=== PATIENT | male | born 1945 | race Asian ===

== ENCOUNTER 2017-10-29 09:51 | Inpatient (IN) | payer BC ==
[2017-10-29 11:30] LABS: BASO % 0.4 % (0-2.0); EOS % 2.7 % (0-4.5); HEMATOCRIT 38.4 % (35.4-49); HEMOGLOBIN 13.1 GM/dL (11.7-16.9); LYMPH % 17.9 % (8-40); MCH 30.7 pg (25.7-33.7); MCHC 34.1 g/dl (32.0-35.9); MEAN PLT VOLUME 8.4 fl (7.5-11.1); PLATELET COUNT 180 K/MM3 (134-434); RBC 4.26 M/mm3 (4.00-5.60); RDW 12.4 % (11.9-15.9); WHITE BLOOD COUNT 6.3 K/mm3 (4.0-10.0)
--- NOTE | 2017-10-29 11:34 | PDOC ---
History of Present Illness - General History Source: Patient <Toyin Ocampo - Last Filed: 10/29/17 13:31> <Carlos Crook - Last Filed: 10/29/17 14:39> - General Chief Complaint: Chest Pain Stated Complaint: PCP SENT/CHEST PAIN Time Seen by Provider: 10/29/17 10:23 - History of Present Illness Initial Comments: Patient is a 71 year old male with PMHx of hypothyroidism (previously had hypothyroidism), HTN, sleep apnea (was on CPAP but stopped using it recently), who was referred by his PCP due to abnormal EKG, SOB, and chest pain. Patient states that for the past two nights he has been having trouble sleeping due to his difficulty breathing. Patient states that he has to take a deep breath and it's almost as if he is hungry for air. He endorses associated chest pain that he describes as constant, pressure-like, rates 6-7/10 last night, 3-4/10 currently, located mid-sternal radiates to right side of chest, not exacerbated with inspiration or palpation. He states the chest pain was worse 2 nights ago and was a touch better last night. He saw his PCP this morning who referred him to the ED due to an abnormal EKG. He states that he did not take his daily aspirin today. He also endorses 10-15 days of recent loose stools. Denies any recent fevers, chills weight loss. Denies recent travel. Denies h/o LE edema. Allergies: erythromycin PCP: Tunde Chu (Toyin Ocampo) Past History <Toyin Ocampo - Last Filed: 10/29/17 13:31> - Past Medical History COPD: Yes HTN: Yes Hypercholesterolemia: Yes - Suicide/Smoking/Psychosocial Hx Smoking History: Never smoked Have you smoked in the past 12 months: No Information on smoking cessation initiated: No Hx Alcohol Use: No Drug/Substance Use Hx: No Substance Use Type: None <Carlos Crook - Last Filed: 10/29/17 14:39> - Past Medical History Allergies/Adverse Reactions: Allergies Allergy/AdvReac Type Severity Reaction Status Date / Time erythromycin base Allergy Verified 10/29/17 09:56 [From Erythrocin] Home Medications: Ambulatory Orders Atorvastatin Calcium [Lipitor] 10 mg PO HS 10/29/17 Levothyroxine [Synthroid -] 50 mcg PO DAILY 10/29/17 Losartan Potassium [Cozaar -] 50 mg PO DAILY 10/29/17 Tamsulosin HCl [Flomax] 0.4 mg PO DAILY 10/29/17 Review of Systems <Toyin Ocampo - Last Filed: 10/29/17 13:31> <Carlos Crook - Last Filed: 10/29/17 14:39> - Review of Systems Comments:: CONSTITUTIONAL: No fever, no chills, no fatigue EYES: No visual changes ENT: No ear pain, no sore throat CARDIOVASCULAR: +chest pain, no palpitations RESPIRATORY: No cough,+difficulty breathing GI: No abdominal pain, no nausea, no vomiting, no constipation, +diarrhea GENITOURINARY: No dysuria, no frequency, no hematuria MUSKULOSKELETAL: No back pain, no joint pain, no myalgias SKIN: No rash NEURO: No headache (Toyin Ocampo) *Physical Exam <Toyin Ocampo - Last Filed: 10/29/17 13:31> <Carlos Crook - Last Filed: 10/29/17 14:39> - Vital Signs Last Vital Signs Temp Pulse Resp BP Pulse Ox 98.0 F 65 16 150/83 99 10/29/17 13:08 10/29/17 13:08 10/29/17 13:08 10/29/17 13:08 10/29/17 13:08 - Physical Exam Comments: CONSTITUTIONAL: Well-appearing; well-nourished; in no apparent distress HEAD: Normocephalic; atraumatic EYES: PERRL; EOM intact ENMT: External appears normal; normal oropharynx NECK: Supple; nontender; no cervical lymphadenopathy CARD: Normal S1, S2; no murmurs, rubs, or gallops RESP: Normal chest excursion with respiration; breath sounds clear and equal bilaterally; no wheezes, rhonchi, or rales ABD: Soft, non-distended; non-tender; no palpable organomegaly, no palpable hernias EXT: Normal ROM in all four extremities; non-tender to palpation; distal pulses intact;+1 pitting edema b/l le SKIN: Warm, dry, no rash NEURO: No focal neurological deficiencies. (Toyin Ocampo) Heart Score/ECG Review - History History: Moderately suspicious - Electrocardiogram EKG: Non specific repolarization disturbance - Age Age: >/= 65 - Risk Factors Risk Factors Heart Score: Yes Hx Hypertension Based on the list above the patient has:: 1-2 risk factors - Troponin Troponin: </= normal limit - Score Heart Score - Total: 5 <Carlos Crook - Last Filed: 10/29/17 14:39> ED Treatment Course - LABORATORY CBC & Chemistry Diagram: 10/29/17 11:15 10/29/17 11:15 <Toyin Ocampo - Last Filed: 10/29/17 13:31> - LABORATORY CBC & Chemistry Diagram: 10/29/17 11:15 10/29/17 11:15 <Carlos Crook - Last Filed: 10/29/17 14:39> - ADDITIONAL ORDERS Additional order review: Laboratory Results 10/29/17 10/29/17 11:15 11:15 PT with INR 13.60 H INR 1.20 H Sodium 135 L Potassium 4.6 Chloride 103 Carbon Dioxide 27 Anion Gap 5 L BUN 13 Creatinine 1.0 Creat Clearance w eGFR > 60 Random Glucose 84 Calcium 8.4 L Total Bilirubin 0.6 AST 23 ALT 32 Alkaline Phosphatase 84 Creatine Kinase 143 Troponin I < 0.02 Total Protein 6.7 Albumin 3.6 10/29/17 11:15 RBC 4.26 MCV 90.0 MCHC 34.1 RDW 12.4 MPV 8.4 Neutrophils % 69.0 Lymphocytes % 17.9 Monocytes % 10.0 Eosinophils % 2.7 Basophils % 0.4 - RADIOLOGY Radiology Studies Ordered: Category Date Time Status CHEST X-RAY PORTABLE* [RAD] Stat Radiology 10/29/17 11:12 Completed - Medications Given in the ED: ED Medications Discontinued Medications Generic Name Dose Route Start Last Admin Trade Name Freq PRN Reason Stop Dose Admin Aspirin 324 mg 10/29/17 11:58 10/29/17 12:11 Asa - PO 10/29/17 11:59 324 mg ONCE ONE Administration Nitroglycerin 1 inch 10/29/17 11:59 10/29/17 12:12 Nitro-Bid 2% Paste - TD 10/29/17 12:00 1 inch ONCE ONE Administration Medical Decision Making <Toyin Ocampo - Last Filed: 10/29/17 13:31> <Carlos Crook - Last Filed: 10/29/17 14:39> - Medical Decision Making 10/29/17 14:38 71-year-old male with history of hypertension and sleep apnea no longer uses C Pap presents with 2 days of shortness of breath and parasternal chest discomfort which improved after administration of transdermal nitroglycerin. First set of cardiac enzymes is within normal limit. EKG reveals inverted T waves in V4 V5 and V6 chest x-ray revealed no evidence of cardiomegaly/ infiltrate or effusion. Heart score is noted to be 5. Will admit to telemetry for ACS with cardiology consultation. (Carlos Crook) *DC/Admit/Observation/Transfer <Toyin Ocampo - Last Filed: 10/29/17 13:31> - Discharge Dispostion Decision to Admit order: Yes <Carlos Crook - Last Filed: 10/29/17 14:39> Diagnosis at time of Disposition: Acute coronary syndrome - Discharge Dispostion Condition at time of disposition: Fair - Referrals Referrals: Tunde Goldstein MD [Primary Care Provider] - - Patient Instructions - Post Discharge Activity - Attestations Scribe Attestion: 10/29/17 12:46 Documentation prepared by Toyin Ocampo, acting as medical charge entry specialist for Carlos Crook MD. (Toyin Ocampo) Physician Attestion: 10/29/17 14:38 The documentation was prepared by the scribe under my direct supervision. I have reviewed the documentation which correctly represents the findings, medical decision-making and critical action taken by me. (Carlos Crook)
[2017-10-29 11:42] LABS: INR 1.2 (0.83-1.09); PROTHROMBIN TIME (PATIENT) 13.6 SEC (9.7-13.0)
[2017-10-29] MEDS ORDERED: ASPIRIN 81 MG CHEWABLE TABLETS PO ONE (11:58)
[2017-10-29] MEDS ORDERED: NITROGLYCERIN 2% OINTMENT - 1GM PACKET TD ONE ×2 (11:59→12:13)
[2017-10-29 12:01] LABS: ALBUMIN 3.6 g/dl (3.4-5.0); ANION GAP 5 MMOL/L (8-16); BILIRUBIN,TOTAL 0.6 mg/dL (0.2-1.0); BLOOD UREA NITROGEN 13 mg/dL (7-18); CALCIUM 8.4 mg/dL (8.5-10.1); CHLORIDE 103 mmol/L (98-107); CO2 27 mmol/L (21-32); GLUCOSE,RANDOM 84 mg/dL (74-106); POTASSIUM 4.6 mmol/L (3.5-5.1); SGOT/AST 23 U/L (15-37); SGPT/ALT 32 U/L (12-78); SODIUM 135 mmol/L (136-145); TOT PROT 6.7 g/dl (6.4-8.2)
[2017-10-29 12:03] LABS: ALK PHOS 84 U/L (45-117)
[2017-10-29] MEDS ORDERED: ASPIRIN 81 MG CHEWABLE TABLETS ONE (12:13)
--- NOTE | 2017-10-29 13:49 | EKG ---
Test Reason : Blood Pressure : / mmHG Vent. Rate : 064 BPM Atrial Rate : 064 BPM P-R Int : 162 ms QRS Dur : 098 ms QT Int : 384 ms P-R-T Axes : 065 -09 -37 degrees QTc Int : 396 ms NORMAL SINUS RHYTHM POSSIBLE LEFT ATRIAL ENLARGEMENT LEFT VENTRICULAR HYPERTROPHY T WAVE ABNORMALITY, CONSIDER LATERAL ISCHEMIA ABNORMAL ECG NO PREVIOUS ECGS AVAILABLE Confirmed by BARRIE ESPINAL MD ([id number]) on 10/29/2017 1:49:00 PM Referred By: Confirmed By:BARRIE ESPINAL MD
--- NOTE | 2017-10-29 17:44 | CON.CARD ---
Consult Consult Specialty:: Cardiology Referred by:: ER Reason for Consultation:: CHest pain, sob, abnormal EKG - History of Present Illness Chief Complaint: chest pain, sob, abnormal ekg History of Present Illness: 71 year old man with pmh hypothyroid, htn, tomasz, sent for admission by PMD for c/ o chest pain, sob, and abnormal ekg. pt seen and examined in the er in nad. states that for the past 2 nights when lying down in bed he has had difficulty breathing. he has had 2 different types of chest pain 1 on the right side worse with inspiration, left sided chest pain he is unsure if worse with inspiration but was present during sob episode. Currently asymptomatic except for mild reproducible R sided chest discomfort with deep inspiration. denies having had chest pain or sob in the past states that he had a cardiac cath 1999 that was normal at [facility] after syncope states he has had multiple nuclear stress tests over the years for screening, followed by Dr. Samano in the past, all of which were normal. states that he swims every weekend for approximately 45min straight without limitation to his exercise tolerance. - History Source History Provided By: Patient, Family Member Limitations to Obtaining History: No Limitations - Past Medical History Cardio/Vascular: Yes: HTN Endocrine: Yes: Hypothyroidism - Alcohol/Substance Use Hx Alcohol Use: No - Smoking History Smoking history: Never smoked Have you smoked in the past 12 months: No - Social History Usual Living Arrangement: With Spouse ADL: Independent History of Recent Travel: No Home Medications - Allergies Allergies/Adverse Reactions: Allergies Allergy/AdvReac Type Severity Reaction Status Date / Time erythromycin base Allergy Verified 10/29/17 09:56 [From Erythrocin] - Home Medications Home Medications: Ambulatory Orders Atorvastatin Calcium [Lipitor] 10 mg PO HS 10/29/17 Levothyroxine [Synthroid -] 50 mcg PO DAILY 10/29/17 Losartan Potassium [Cozaar -] 50 mg PO DAILY 10/29/17 Tamsulosin HCl [Flomax] 0.4 mg PO DAILY 10/29/17 Family Disease History - Family Disease History Family History: Denies Review of Systems - Review of Systems Constitutional: denies: No Symptoms, Chills, Diaphoresis, Fever, Lethargy, Loss of Appetite, Malaise, Night Sweats, Unintentional Wgt. Loss, Weakness, Other Eyes: denies: No Symptoms, Blind Spots, Blurred Vision, Double Vision, Eye Pain , Floaters, Photophobia, Recent Change in Vision, Other HENT: denies: No Symptoms, Difficult Swallowing, Ear Discharge, Ear Pain, Epistaxis, Gingival Bleeding, Hearing Loss, Mouth Swelling, Nasal Congestion, Ocular Prosthesis, Throat Pain, Toothache, Ringing in Ears, Other Neck: denies: No Symptoms, Decreased ROM, Lumps, Pain on Movement, Stiffness, Swollen Glands, Tenderness, Other Cardiovascular: reports: Chest Pain, Shortness of Breath. denies: No Symptoms, Edema, Palpitations, Other Respiratory: reports: Orthopnea, SOB. denies: No Symptoms, Cough, Exercise Intolerance, Hemoptysis, PND, Snoring, SOB on Exertion, Wheezing, Other Gastrointestinal: denies: No Symptoms, Abdominal Pain, Bloating, Constipation, Diarrhea, Dysphagia, Indigestion, Melena, Nausea, Rectal Bleeding, Vomiting, Vomiting Blood, Other Genitourinary: denies: No Symptoms, Burning, Discharge, Dysuria, Flank Pain, Frequency, Hematuria, Incontinence, Lesions, Menses, Pain, Testicular Mass, Testicular Pain, Testicular Swelling, Urgency, Vaginal Bleeding, Other Breasts: denies: No Symptoms Reported, See HPI, Breast Implants, Discharge from Nipple, Lumps, Pain, Skin Changes, Other Musculoskeletal: denies: No Symptoms, Back Pain, Crepitus, Decreased ROM, Extremity Pain, Joint Pain, Joint Swelling, Muscle Pain, Muscle Cramps, Muscle Weakness, Other Integumentary: denies: No Symptoms, Blister, Bruising, Change in Color, Eczema, Erythema, Incision, Lesions, Lump, Pallor, Pruritis, Rash, Wound, Other Neurological: denies: No Symptoms, Change in LOC, Change in Speech, Confusion, Dizziness, Headache, Incoordination, Numbness, Parasthesia, Pre-Existing Deficit , Seizure, Syncope, Tremors, Unsteady Gait, Weakness, Other Endocrine: denies: No Symptoms, Excessive Sweating, Flushing, Increased Hunger, Increased Thirst, Intolerance to Cold, Intolerance to Heat, Unexplained Weight Gain, Unexplained Weight Loss, Other Hematology/Lymphatic: denies: No Symptoms, Easily Bruised, Excessive Bleeding, Swollen Glands, Other Psychiatric: denies: No Symptoms, Altered Sleep Pattern, Anxiety, Depression, Hallucinations, Panic, Paranoia, Suicidal, Other - Risk Factors Known Risk Factors: Yes: Hypercholesterolemia, Hypertension Vital Signs: Vital Signs Temperature 98.0 F 10/29/17 17:02 Pulse Rate 56 L 10/29/17 17:02 Respiratory Rate 16 10/29/17 17:02 Blood Pressure 130/73 10/29/17 17:02 O2 Sat by Pulse Oximetry (%) 96 10/29/17 17:02 Constitutional: Yes: Well Nourished, No Distress, Calm Eyes: Yes: WNL, Conjunctiva Clear, EOM Intact, PERRL HENT: Yes: WNL, Atraumatic, Normocephalic Neck: Yes: WNL, Supple, Trachea Midline Respiratory: Yes: WNL, Regular, CTA Bilaterally. No: Rales, Rhonchi, SOB, Wheezes Gastrointestinal: Yes: WNL, Normal Bowel Sounds, Soft. No: Distention, Tenderness Renal/: Yes: WNL Cardiovascular: Yes: WNL, Regular Rate and Rhythm. No: Bradycardia, Tachycardia , Pulse Irregular, Gallop, Rub, Varicosities JVD: No Carotid Bruit: No PMI: Non-Displaced Heart Sounds: Yes: S1, S2. No: Split S2, S3, S4, Clicks, Gallop, Rub, Bruit Murmur: No: Systolic Murmur, Diastolic Murmur Musculoskeletal: Yes: WNL Extremities: Yes: WNL Edema: No Peripheral Pulses WNL: Yes Peripheral Pulses: 2+ Left Doralis Pedis, 2+ Right Dorsalis Pedis Integumentary: Yes: WNL Neurological: Yes: WNL, Alert, Oriented, Cran Nerves II-XII Intact ...Motor Strength: WNL Psychiatric: Yes: WNL, Alert, Oriented - Other Data Labs, Other Data: CBC, BMP 10/29/17 11:15 10/29/17 11:15 INR, PTT INR 1.20 (0.83-1.09) H 10/29/17 11:15 Troponin, BNP 10/29/17 11:15 Troponin I < 0.02 Troponin, BNP 10/29/17 11:15 Troponin I < 0.02 ekg-nsr 64bpm, lvh, T inversions V4, v5, V6, st depressions II, III, aVF Echo: Pending Imaging - Results Chest X-ray: Report Reviewed, Image Reviewed EKG: Report Reviewed, Image Reviewed Other: Report Reviewed, Image Reviewed Assessment/Plan 71 year old man with pmh hypothyroid, htn, tomasz, sent for admission by PMD for c/ o chest pain, sob, and abnormal ekg. pt seen and examined in the er in nad. states that for the past 2 nights when lying down in bed he has had difficulty breathing. he has had 2 different types of chest pain 1 on the right side worse with inspiration, left sided chest pain he is unsure if worse with inspiration but was present during sob episode. Currently asymptomatic except for mild reproducible R sided chest discomfort with deep inspiration. denies having had chest pain or sob in the past states that he had a cardiac cath 1999 that was normal at [facility] after syncope states he has had multiple nuclear stress tests over the years for screening, followed by Dr. Samano in the past, all of which were normal. states that he swims every weekend for approximately 45min straight without limitation to his exercise tolerance. Chest pain/sob-uncertain etiology -EKG abnl as above T wave inversions, ST depressions possible inferolateral ischemia -cardiac enzymes wnl x 1 -start ASA 81mg daily -resume home Statin -trend serial cardiac enzymes and ekgs -monitor on telemetry -if cardiac enzymes trend up start heparin gtt -if cardiac enzymes remain normal will plan for echo and nuclear stress test tomorrow
[2017-10-29] MEDS ORDERED: ATORVASTATIN CA 40 MG TABLET (FP) PO SCH (22:00)
[2017-10-29] MEDS ORDERED: ATORVASTATIN CA 40 MG TABLET (FP) ONE (22:48)
[2017-10-30 00:38] VITALS: BMI 24.5
[2017-10-30] MEDS ORDERED: ASPIRIN 81 MG CHEWABLE TABLETS PO SCH (10:00)
[2017-10-30] MEDS ORDERED: LOSARTAN POTASSIUM 50 MG TABLET (FP) PO SCH (12:38)
--- NOTE | 2017-10-30 12:40 | HP ---
Admitting History and Physical - Primary Care Physician PCP: Alonzo Aragon - Admission Chief Complaint: Chest pain, SOB History of Present Illness: Patient is a 71 year old male with PMHx of hypothyroidism (previously had hypothyroidism), HTN, sleep apnea (was on CPAP but stopped using it recently), who was referred by his PCP due to abnormal EKG, SOB, and chest pain. Patient states that for the past two nights he has been having trouble sleeping due to his difficulty breathing. Patient states that he has to take a deep breath and it's almost as if he is hungry for air. He endorses associated chest pain that he describes as constant, pressure-like, rates 6-7/10 last night, 3-4/10 currently, located mid-sternal radiates to right side of chest, not exacerbated with inspiration or palpation. He states the chest pain was worse 2 nights ago and was a touch better last night. He saw his PCP this morning who referred him to the ED due to an abnormal EKG. He states that he did not take his daily aspirin today. He also endorses 10-15 days of recent loose stools. History Source: Patient, Medical Record Limitations to Obtaining History: No Limitations - Past Medical History Cardiovascular: Yes: HTN Endocrine: Yes: Hypothyroidism - Smoking History Smoking history: Never smoked Have you smoked in the past 12 months: No - Alcohol/Substance Use Hx Alcohol Use: No - Social History ADL: Independent History of Recent Travel: No Home Medications - Allergies Allergies/Adverse Reactions: Allergies Allergy/AdvReac Type Severity Reaction Status Date / Time erythromycin base Allergy Verified 10/29/17 09:56 [From Erythrocin] - Home Medications Home Medications: Ambulatory Orders Levothyroxine [Synthroid -] 50 mcg PO DAILY 10/29/17 Losartan Potassium [Cozaar -] 50 mg PO DAILY 10/29/17 Tamsulosin HCl [Flomax -] 0.4 mg PO DAILY 10/29/17 Aspirin [ASA -] 81 mg PO DAILY #30 tab.chew 10/30/17 Atorvastatin Ca [Lipitor] 40 mg PO HS #30 tablet 10/30/17 Review of Systems - Review of Systems Constitutional: reports: No Symptoms Eyes: reports: No Symptoms HENT: reports: No Symptoms Neck: reports: No Symptoms Cardiovascular: reports: Chest Pain, Shortness of Breath Respiratory: reports: SOB on Exertion Gastrointestinal: reports: No Symptoms Genitourinary: reports: No Symptoms Breasts: reports: No Symptoms Reported Musculoskeletal: reports: No Symptoms Integumentary: reports: No Symptoms Neurological: reports: No Symptoms Endocrine: reports: No Symptoms Hematology/Lymphatic: reports: No Symptoms Psychiatric: reports: No Symptoms Physical Examination Vital Signs: Vital Signs Temperature 97.8 F 10/30/17 06:00 Pulse Rate 53 L 10/30/17 06:00 Respiratory Rate 16 10/30/17 09:00 Blood Pressure 129/74 10/30/17 06:00 O2 Sat by Pulse Oximetry (%) 97 10/30/17 09:00 Constitutional: Yes: Well Nourished, No Distress, Calm Cardiovascular: Yes: Regular Rate and Rhythm Respiratory: Yes: Regular Gastrointestinal: Yes: Normal Bowel Sounds, Soft Musculoskeletal: Yes: WNL Extremities: Yes: WNL Edema: No Peripheral Pulses WNL: Yes Neurological: Yes: Alert, Oriented Psychiatric: Yes: Alert, Oriented Labs: CBC, BMP 10/29/17 11:15 10/29/17 11:15 Imaging - Results Chest X-ray: Report Reviewed Problem List - Problems (1) Acute coronary syndrome Assessment/Plan: -Echo and stress test, pending results -serial trops negative -Seen by Cardiology -if cleared by cardiology, would d/c pt. Code(s): I24.9 - ACUTE ISCHEMIC HEART DISEASE, UNSPECIFIED Assessment/Plan see problem list
[2017-10-30] MEDS ORDERED: TAMSULOSIN HCL 0.4 MG CAP.ER.24H (FP) PO SCH (12:45)
[2017-10-30 14:24] VITALS: BP 126/69; PULSE 64; TEMP 98.1
--- NOTE | 2017-10-30 16:39 | PN ---
Progress Note, Physician Chief Complaint: Patient appears comfortable. No recurrent chest pain. No SOB or palpitation. Tele sinus, no arrhythmia. History of Present Illness: 71 year old man with PMHx hypothyroid, htn, tomasz, admitted with chest pain, sob, and abnormal ekg. -EKG abnl as above T wave inversions, ST depressions, inferolateral ischemia. Exercise nuclear stress test 10/30/2017: (Rayray 10:13 min, 86% MPHR) Normal perfusion and normal LV systolic function with LVEF = 59%. Official echo pending. - Current Medication List Current Medications: Active Medications Aspirin (Asa -) 81 mg PO DAILY [facility] Last Admin: 10/30/17 14:44 Dose: 81 mg Atorvastatin Calcium (Lipitor -) 40 mg PO HS [facility] Last Admin: 10/29/17 22:41 Dose: 40 mg Levothyroxine Sodium (Synthroid -) 50 mcg PO DAILY@0700 [facility] Losartan Potassium (Cozaar -) 50 mg PO DAILY [facility] Last Admin: 10/30/17 14:44 Dose: 50 mg Tamsulosin HCl (Flomax -) 0.4 mg PO DAILY@0830 [facility] Last Admin: 10/30/17 14:44 Dose: 0.4 mg - Objective Vital Signs: Vital Signs Temperature 98.1 F 10/30/17 14:00 Pulse Rate 64 10/30/17 14:00 Respiratory Rate 20 10/30/17 14:00 Blood Pressure 126/69 10/30/17 14:00 O2 Sat by Pulse Oximetry (%) 97 10/30/17 09:00 General: Well developed. Well nourished. No acute distress. Head: Normocephalic. Atraumatic, Eyes: PERRLA, EOMI. Sclerae anicteric. Conjunctivae clear. Neck: Supple. No JVD. No bruits. Heart: Normal S1, S2: Regularly regular rhythm and rate. No murmur. No gallop or rub. Lungs: Symmetrical air entry. Clear to auscultation. No crackle. No wheezing or rhonchi. Abdomen: Soft. Bowel sound positive. Non tender. No masses. Extremities: No edema. No clubbing or cyanosis. PD 2+, equal bilaterally. Neuro: Intact, no focal findings. AAO X3. Labs: CBC, BMP 10/29/17 11:15 10/29/17 11:15 INR, PTT INR 1.20 (0.83-1.09) H 10/29/17 11:15 Assessment/Plan 71 year old man with PMHx hypothyroid, htn, tomasz, admitted with chest pain, sob, and abnormal ekg. -EKG abnl as above T wave inversions, ST depressions, inferolateral ischemia. Exercise nuclear stress test 10/30/2017: (Rayray 10:13 min, 86% MPHR) Normal perfusion and normal LV systolic function with LVEF = 59%. Official echo pending. Chest pain, likely non-cardiac. He has good exercise tolerance and normal treadmill exercise nuclear stress test. -Continue ASA 81mg daily and atorvastatin 40 mg daily. The patient can be discharged today with out-pt cardiac follow up with Dr. Dumont. Please call us for reconsult as needed.
[2017-10-31] MEDS ORDERED: LEVOTHYROXINE NA 50 MCG TABLET (FP) PO SCH (07:00)
--- NOTE | 2017-10-31 09:06 | ECHO ---
Name: JAVIERMEHDI Exam:Adult Echocardiogram Study Date: 10/30/2017 10:09 AM Age: 71 yrs Reason For Study: CHEST PAIN Height: 70 in Weight: 174 lb BSA: 2.0 m2 MMode/2D Measurements & Calculations IVSd: 0.96 cm Ao root diam: 3.4 cm LVIDd: 5.2 cm LA dimension: 4.4 cm LVIDs: 3.5 cm LVPWd: 0.88 cm EDV(Teich): 127.8 ml LVOT diam: 2.1 cm ESV(Teich): 52.0 ml LAV (MOD-bp): 70.0 ml Doppler Measurements & Calculations MV E max fox: 64.2 cm/sec AI P1/2t: 797.4 msec MV A max fox: 64.7 cm/sec MV E/A: 0.99 MV dec time: 0.23 sec AI max fox: 374.2 cm/sec TR max fox: 219.9 cm/sec AI max P.0 mmHg TR max P.3 mmHg AI dec slope: 137.5 cm/sec2 Med Peak E' Fox: 4.7 cm/sec Med E/e': 13.6 Lat Peak E' Fox: 9.7 cm/sec Lat E/e': 6.6 Left Ventricle The left ventricular size, thickness and function are normal. Ejection Fraction = 55-60%. Right Ventricle The right ventricle is normal in size and function. Atria The left atrium is mildly dilated. Right atrial size is normal. Mitral Valve The mitral valve is normal in structure and function. There is no mitral valve stenosis. There is mil d mitral regurgitation. Tricuspid Valve The tricuspid valve is normal in structure and function. There is mild tricuspid regurgitation. Right ventricular systolic pressure is normal. Aortic Valve The aortic valve is trileaflet. No hemodynamically significant valvular aortic stenosis. Mild aortic regurgitation. Pulmonic Valve The pulmonic valve is not well seen, but is grossly normal. There is no pulmonic valvular stenosis. M ild pulmonic valvular regurgitation. Great Vessels The aortic root is normal size. Pericardium/Pleura There is no pericardial effusion. Interpretation Summary The left ventricular size, thickness and function are normal Ejection Fraction = 55-60%. The right ventricle is normal in size and function. The left atrium is mildly dilated. There is mild mitral regurgitation. There is mild tricuspid regurgitation. Right ventricular systolic pressure is normal. No hemodynamically significant valvular aortic stenosis. Mild aortic regurgitation. Mild pulmonic valvular regurgitation. The aortic root is normal size. There is no pericardial effusion. MD Som Martínez 10/31/2017 09:06 AM
== END 2017-10-30 17:17 | disposition home or self-care (01) | DRG 313 ==
LOC: JER 09:51 → JERBED 14:39 → J4W 23:13
PROVIDERS: ADMIT Family Medicine; ATTEND Family Medicine
DX: R07.89 Other chest pain (principal); I10 Essential (primary) hypertension; G47.33 Obstructive sleep apnea (adult) (pediatric); E03.9 Hypothyroidism, unspecified; J44.9 Chronic obstructive pulmonary disease, unspecified; E78.5 Hyperlipidemia, unspecified; R94.31 Abnormal electrocardiogram [ECG] [EKG]
CPT/HCPCS: 36415; 71045-TC-FY; 78452-TC; 80053; 82550; 84439; 84443; 84484; 85025; 85610; 93005; 93010; 93017; 93306-TC; 99285-25; A9502

== ENCOUNTER 2018-09-02 09:24 | Day surgery (SDC) | payer BC ==
[2018-07-17 16:45] VITALS: BMI 25.1
[2018-09-02] MEDS ORDERED: PROPOFOL 20 ML ONE (09:57)
[2018-09-02] MEDS ORDERED: LIDOCAINE HCL/PF 2% SDV 5ML VIAL ONE (09:57)
[2018-09-02 10:03] VITALS: TEMP 97.5
[2018-09-02 11:33] VITALS: BP 127/64; PULSE 49
--- NOTE | 2018-09-07 15:38 | PATH ---
Surgical Pathology Report Patient Name: MEHDI HERRERA [facility]. Rec. #: [id number] /Age/Gender: 1945 (Age: 72) / M Account: [id number] Location: [facility] Taken: 09/02/2018 Received: 09/02/2018 Reported: 09/07/2018 Physicians: Kendra Heart M.D. Specimen(s) Received BX RECTOSIGMOID JUNCTION POLYP AT 15 CM (X4) Clinical History History of polyps Postoperative diagnosis: Colon polyps Final Diagnosis RECTOSIGMOID JUNCTION AT 15 CM, POLYP (X4), BIOPSY: FRAGMENTS OF HYPERPLASTIC POLYP. Electronically Signed Dveora Howard M.D. Gross Description Received in formalin, labeled "biopsy polyp rectosigmoid junction at 15 cm" are 5 [place], irregular portions of soft tissue ranging from 0.2-0.6 cm. in greatest dimension. The specimens are submitted in toto in one cassette. 09/03/2018 [facility]09/03/2018
== END 2018-09-02 11:35 | disposition home or self-care (01) ==
LOC: FASU-ENDO 09:24
PROVIDERS: ATTEND Internal Medicine Gastroenterology
PROC: 0DBN8ZX Excision of Sigmoid Colon, Via Natural or Artificial Opening Endoscopic, Diagnostic (ICD-10-PCS; principal; 2018-09-02 10:28)
DX: Z86.010 Personal history of colon polyps (principal); D12.7 Benign neoplasm of rectosigmoid junction; K64.1 Second degree hemorrhoids
CPT/HCPCS: 88305-TC